=== PATIENT | female | born 1990 | race Two or more races ===

== ENCOUNTER 2019-07-24 22:33 | Emergency (ER) | payer MEDICAID ==
[2019-07-24] MEDS ORDERED: ONDANSETRON ODT 4 MG ONE (22:53)
[2019-07-25] MEDS ORDERED: RACEPINEPHRINE INH 2.25%, 0.5ML ONE (00:03)
== END 2019-07-25 01:50 | disposition home or self-care (01) ==
LOC: ED 23:47
DX: J45.41 Moderate persistent asthma with (acute) exacerbation (principal); B34.9 Viral infection, unspecified
CPT/HCPCS: 71046; 94640; 99283

== ENCOUNTER 2021-04-23 08:51 | Emergency (ER) | payer MEDICAID ==
[~2021-04-23] VITALS: Ht 157.5 cm; Wt 80.7 kg
--- NOTE | 2021-04-23 09:02 | NUR ---
0903: straight to CT room 1 via wc
--- NOTE | 2021-04-23 09:10 | NUR ---
surgical scrub tech luis bloods in CT, processing now.
[2021-04-23] MEDS ORDERED: OMNIPAQUE 350 MG/ML, 100ML BOTTLE ONE (09:15)
--- NOTE | 2021-04-23 09:18 | NUR ---
PT BACK [facility]. CANNON AT BEDSIDE FOR EVALUATION. NEURO ASSESSMENT COMPLETED BY THIS RN. CCU RN GABRIELA AT BEDSIDE FOR EVALUATION WELL. PT WITH LEFT FACIAL DROOP, ABLE TO LIFT LEFT EYE BROW. NUMBNESS LEFT FACE, ARM AND LEG. EQUAL AND STRONG GRASPS, FLEXION, DORSIFLEXION. CMS OTHERWISE INTACT. PT STATES "YESTERDAY MY LEFT ARM, FACE AND NECK FELT WEIRD AND NUMB, WENT AWAY. THIS MORNING WOKE UP BRUSHING MY TEETH WENT TO USE MOUTHWASH AND REALIZED FACE NUMB AND DROOPY AND LEFT ARM AND NECK AGAIN." PT A&OX4. SPEECH CLEAR. SKIN PWD. FREDY. NIH STROKE SCALE 2. FAMILY AT BEDSIDE. POC GLUCOSE 117. CODE NEURO CALLED BY BAKER PIE DIGNA AND DR. CANNON AT 0900. PT ASSISTED IN TO W/C AND TAKEN DIRECTLY TO CT. IV PLACED IN CT AT 0906. CT BEGAN AT 0908. CCU RN, HOUSE SUP IN CT FOR CODE NEURO. REMAIN AT BEDSIDE. CONT PULSE OX, BP, CARDIAC MONITORS IN PLACE. ST ON MONITOR, RATE 100-125. PT NERVOUS/ANXIOUS. CALMING MEASURES PROVIDED AND RE-ASSURANCE TO PT.
[2021-04-23] MEDS ORDERED: METF500T17 PO (09:22)
[2021-04-23 09:31] LABS: BASOPHILS % (AUTO) 1 % (0-1); EOSINOPHILS % (AUTO) 3 % (1-7); LYMPHOCYTES % (AUTO) 23 % (22-44); MEAN CORPUSCULAR HEMOGLOBIN 26.4 pg (27.0-34.8); MEAN CORPUSCULAR HGB CONC 32.2 g/dL (32.4-35.8); MEAN PLATELET VOLUME 7.6 fL (7.4-10.4); MONOCYTES % (AUTO) 7 % (2-9); NEUTROPHILS % (AUTO) 67 % (42-75); PLATELET COUNT 393 x10^3/uL (130-400); RED BLOOD COUNT 5.06 x10^6/uL (3.82-5.3); RED CELL DISTRIBUTION WIDTH 14.5 % (9.6-15.2)
--- NOTE | 2021-04-23 09:36 | NUR ---
NEURO TELE ROBOT [id number] AT BEDSIDE, AWAITING NEUROLOGIST EVAL AND CT RESULTS. SWALLOW EVAL COMPLETED. PASSED. PT REPORTS NO CHANGES IN SYMPTOMS. NEURO EVAL UNCHANGED. VSS. SR ON MONITOR, RATE 80-100. PT MORE CALM AND RELAXED. SPEECH REMAINS CLEAR. A&OX4.
[2021-04-23 09:46] LABS: INTERNATIONAL NORMALIZED RATIO 0.95 (0.93-1.1); PROTHROMBIN TIME 10.2 Seconds (9.6-11.5)
--- NOTE | 2021-04-23 09:54 | NUR ---
CONTINUE AWAITING CT RESULTS. NO INDICATION AT THIS TIME FOR TPA ADMIN PER MD, AWAITING NEUROLOGIST EVAL. PT UP AND AMBULATORY TO RESTROOM WITH STEADY GAIT PER DR. DAVIS WALKER. CLEAN CATCH UA COLLECTED IF NEEDED, NO ORDER AT THIS TIME PER DR. CANNON. NO CHANGES TO NEURO STATUS. VSS. SR ON MONITOR. WILL CONTINUE TO MONITOR PT. FAMILY AT BEDSIDE.
[2021-04-23 10:07] LABS: TROPONIN I < 0.015 ng/mL (0.000-0.045)
--- NOTE | 2021-04-23 10:08 | NUR ---
CT EXAMS RESULTED AT 1004. PER DR. CANNON, PT IS NOT CANDIDATE FOR TPA AT THIS TIME. CONTINUE TO AWAITING NEUROLOGIST EVAL TO CLEAR CODE NEURO PER DR. CANNON. WILL CONTINUE TO MONITOR PT. VSS. SR ON MONITOR. NO CHANGES IN NEURO EVAL.
--- NOTE | 2021-04-23 10:45 | NUR ---
PT REPORTS "FEELING A LITTLE BETTER, MY LEG AND ARM ARE NOT TINGLING ANYMORE, BUT STILL ON MY FACE." NO CHANGE TO FACIAL DROOP NOTED. IMPROVED SENSATION. GRASP/FLEXION/DORSIFLEXION REMAINS STRONG. VSS. CALL LIGHT IN REACH. FALL PRECAUTIONS IN PLACE. SR ON MONITOR. CONTINUE AWAITING NEUROLOGIST CONSULT. DENIES ANY PAIN AND NEED TO USE RESTROOM
--- NOTE | 2021-04-23 11:15 | NUR ---
PT RESTING IN POSITION OF COMFORT. DENIES ANY PAIN, NEED TO USE RESTROOM AND ANY CHANGES IN STATUS. ASSESSMENT UNCHANGED. VSS. SR ON MONITOR. CONTINUE AWAITING NEURO CONSULT FOR PT. TELEROBOT IN ROOM. CALL LIGHT IN REACH. FALL PRECUATIONS IN PLACE
--- NOTE | 2021-04-23 11:47 | NUR ---
TASK RN: PT RESTING IN NAD, VSS. AWAITING NEURO CONSULT, PER DR. CANNON HE CALLED AND HAS CALLED FOR CONSULT.
--- NOTE | 2021-04-23 12:00 | NUR ---
NEURO TELE DOC ON TELEROBOT FOR EVAL.
--- NOTE | 2021-04-23 12:15 | NUR ---
PT TO BE DISCHARGE PER DR. CANNON. AT BEDSIDE DISCUSSING POC WITH PT AND PT SIGNIFICANT OTHER. AWAITING DC PAPERS FROM ERP. VSS. NEURO EVAL UNCHANGED.
[2021-04-23 12:38] VITALS: BP 128/93
--- NOTE | 2021-04-23 12:38 | NUR ---
PT AWAITING DISCHARGE PAPERS FROM ERP.
--- NOTE | 2021-04-23 12:55 | NUR ---
BEDSIDE REPORT AND TRANSFER OF CARE TO ANGELA Deleon RN AT THIS TIME.
--- NOTE | 2021-04-23 13:06 | NUR ---
REPORT RC'VD FROM CINTHIA POSEY. D/C INSTRUCTIONS, MEDS & F/U APPT RV'WD WITH PT, SHE VERBALIZES UNDERSTANDING. RX GIVEN X2. INSTRUCTED PT TO RETURN TO ED FOR ANY WORSENING OR CONCERNING SYMPTOMS AND TO F/U WITH NEUROLOGY. PT AMBULATED OUT OF ED WITH SIGNIFICANT OTHER WITHOUT DIFFICULTY.
== END 2021-04-23 13:07 | disposition home or self-care (01) ==
LOC: ED 12:32
DX: G51.0 Bell's palsy (principal); R00.0 Tachycardia, unspecified; I49.3 Ventricular premature depolarization; J45.909 Unspecified asthma, uncomplicated
CPT/HCPCS: 70450; 70496; 70498; 80047; 84484; 85025; 85610; 85730; 93005; 99285; Q9967